=== PATIENT | male | born 1950 | race Caucasian/White ===

== ENCOUNTER 2017-03-17 04:51 | Inpatient (IN) | payer BC, OTHER ==
--- NOTE | 2017-02-20 10:34 | HISTORY & PHYSICAL EXAMINATION ---
DATE OF ADMISSION: 03/17/2017 CHIEF COMPLAINT: Left knee pain. HISTORY OF PRESENT ILLNESS: Mr. Ulloa is a 66-year-old male with a 3-year history of left knee pain. The patient rates his pain a 7/10. He has pain with his daily activities. He has limited standing and walking tolerance. Pain is worse with weightbearing. The patient has had injections, bracing and NSAIDs over the years. He has failed conservative treatment and is scheduled to proceed with elective left total knee arthroplasty. PAST MEDICAL HISTORY: Mitral valve prolapse. He denies heart disease, diabetes or DVT. PAST SURGICAL HISTORY: Negative. SOCIAL HISTORY: The patient drinks alcohol socially. He denies tobacco use. 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 FAMILY HISTORY: Negative for DVT. MEDICATIONS: None. ALLERGIES: None. REVIEW OF SYSTEMS: See HPI. Ten other systems reviewed, all negative. PHYSICAL EXAMINATION: VITAL SIGNS: Height 6 foot 2 inches, weight 240 pounds. GENERAL: This is a well-developed, well-nourished male who is alert and oriented x3. Mood and affect are appropriate. HEAD, EYES, EARS, NOSE, AND THROAT: Normocephalic, atraumatic. Mucous membranes are moist and intact. NECK: Supple without lymphadenopathy. HEART: Regular rate and rhythm without murmurs, rubs or gallops. LUNGS: Clear to auscultation without wheezes or rhonchi. ABDOMEN: Soft and nontender. Bowel sounds are equal and active. EXTREMITIES: No ecchymosis, redness or warmth. He has mild effusion. He has neutral alignment. Range of motion is from 5-115 degrees with +2 medial laxity. He is neurovascularly intact with +5/5 strength. X-RAY EXAMINATION: AP and lateral views show joint space narrowing and osteophyte formation. IMPRESSION: Degenerative joint disease, left knee. PLAN: The patient will be admitted for a left total knee arthroplasty. We will plan on aspirin for DVT prophylaxis. The patient's PCP is Dr. Coronado of [facility]. He will have [facility] for home physical therapy upon discharge.
[2017-02-21 08:58] VITALS: BMI 34.0
--- NOTE | 2017-02-21 09:26 | PAT Medication Instructions ---
Service Date Feb 21, 2017. Current Home Medication List Ibuprofen (Advil), 600 MG PO PRN Multivitamin (Multivitamin), 1 TAB PO QAM Ocuvite Preservision (Ocuvite Preservision), 1 TAB PO QAM [Vitamin B12], 1 TAB PO QAM [Vitamin C], 1 TAB PO QAM Medication Instructions For Your Scheduled Surgery - Check with surgeon for instructions: Ibuprofen (Advil), 600 MG PO PRN - Hold the following medications the morning of surgery: Multivitamin (Multivitamin), 1 TAB PO QAM Ocuvite Preservision (Ocuvite Preservision), 1 TAB PO QAM [Vitamin B12], 1 TAB PO QAM [Vitamin C], 1 TAB PO QAM If you have any questions please call us at [phone] or [phone] or [phone]
[2017-02-21 10:03] LABS: BASO % 0.7 %; BASO ABS # 0.04 K/uL (0-0.2); EOS % 2.3 %; EOS ABS # 0.13 K/uL (0-0.5); HEMOGLOBIN 15.8 g/dL (14.0-18.0); IG# 0.01 K/uL (0.00-0.02); LYMPH % 31.5 %; LYMPH ABS # 1.82 K/uL (1.2-3.4); MEAN CELL VOLUME 83.8 fL (80-100); MEAN CORPUSCULAR HEMOGLOBIN 29.4 pg (25-34); MEAN CORPUSCULAR HGB CONC 35.1 g/dl (32-36); MEAN PLATELET VOLUME 10.6 fL (7.4-10.4); MONO % 8.1 %; MONO ABS # 0.47 K/uL (0.11-0.59); NEUT % 57.2 %; PLATELET COUNT 168 K/uL (130-400); RED CELL DISTRIBUTION WIDTH CV 13.5 % (11.5-14.5); RED CELL DISTRIBUTION WIDTH SD 40.9 fL (36.4-46.3); WHITE BLOOD COUNT 5.77 K/uL (4.8-10.8)
[2017-02-21 10:10] LABS: PTT PATIENT 26.6 SECONDS (21.0-31.0)
[2017-02-21 10:12] LABS: ALBUMIN 4.1 gm/dl (3.4-5.0); CALCIUM 9.3 mg/dl (8.5-10.1); CREATININE 0.92 mg/dl (0.60-1.40); POTASSIUM 4.6 mmol/L (3.5-5.1)
[2017-02-21 10:27] LABS: HEMOGLOBIN A1C 5.1 % (4.5-5.6)
--- NOTE | 2017-02-21 10:29 | DIAGNOSTIC IMAGING REPORT ---
CHEST 2 VIEWS ROUTINE HISTORY: 66 years-old Male PAT preoperative exam. No acute chest complaints. COMPARISON: None available TECHNIQUE: PA and lateral views of the chest FINDINGS: Cardiac silhouette is moderately enlarged. No pneumothorax, pleural effusion, focal airspace consolidation or overt pulmonary edema. Bones of the chest appear grossly intact. IMPRESSION: Cardiomegaly without acute process. The above report was generated using voice recognition software. It may contain grammatical, syntax or spelling errors. Electronically signed by: Jose Alexandra M.D. 02/21/2017 10:28 AM Dictated Date/Time: 02/21/2017 10:27 AM
[2017-03-17] VITALS (10 sets, daily range): BP systolic 108–138; BP diastolic 68–85; PULSE 60–87; TEMP 36.2–36.7; O2SAT 91–96; Ht 188 cm; Wt 119.2 kg
[~2017-03-17] VITALS: Ht 188 cm; Wt 119.2 kg
[~2017-03-17 04:51] MED LIST: IBUP-1050 PO; MULT-190 PO; MULT-506 PO; VITAMIN B12 PO; VITAMIN C PO
[2017-03-17] MEDS ORDERED: LACTATED RINGER'S 1000ML 1,000 ML IV SCH (06:00)
[2017-03-17] MEDS ORDERED: CeleBREX 200 MG CAP PO SCH (06:00)
[2017-03-17] MEDS ORDERED: ROPIVACAINE 5MG/ML 30 ML 150 MG, BUPIVACAINE 0.5% MPF INJ 30 ML, EpINEphrine HCL INJ 0.... INFIL SCH ×8 (06:00)
[2017-03-17] MEDS ORDERED: CEFAZOLIN 2000MG IV PUSH 10 ML IV SCH (06:00)
[2017-03-17] MEDS ORDERED: METOCLOPRAMIDE HCL 10 MG TAB PO SCH (06:00)
[2017-03-17] MEDS ORDERED: LACTATED RINGER'S 1000ML IV SCH (06:00)
[2017-03-17] MEDS ORDERED: ACETAMINOPHEN 500 MG TAB PO SCH (06:00)
[2017-03-17] MEDS ORDERED: FAMOTIDINE 20 MG TAB PO SCH (06:00)
[2017-03-17] MEDS ORDERED: DEXAMETHASONE 4 MG TAB PO SCH (06:00)
[2017-03-17] MEDS ORDERED: LACTATED RINGER'S 1000ML 500 ML IV SCH (06:00)
[2017-03-17] MEDS ORDERED: GABAPENTIN 300 MG CAP PO SCH (06:00)
[2017-03-17] MEDS: TRANEXAMIC ACID INJ 1,000 MG in SYRINGE 0 ML IV SCH ×2 (06:30→06:39)
--- NOTE | 2017-03-17 06:42 | History & Physical Bridge Note ---
H&P Re-Evaluation Bridge Note: I have examined the patient, reviewed the History & Physical and in the interval since the performance of the History & Physical I have noted the following changes of clinical significance: No changes noted
[2017-03-17] MEDS ORDERED: FENTANYL CITRATE INJ 50 MCG/1 ML 2 ML VIAL ONE ×3 (06:45→06:47)
[2017-03-17] MEDS ORDERED: BUPIVACAINE 0.5 % 5 MG/1 ML PF 10ML VIAL ONE (06:45)
[2017-03-17] MEDS ORDERED: MIDAZOLAM HCL 1 MG/ML 2ML VIAL ONE ×4 (06:45→07:03)
[2017-03-17] MEDS ORDERED: ORTHO JOINT ANESTHETIC ONE (07:01)
[2017-03-17] MEDS ORDERED: POVIDONE-IODINE OP SOLN 30 ML BTL ONE (07:01)
[2017-03-17] MEDS ORDERED: BACITRACIN 50000 UNIT VIAL ONE (07:01)
[2017-03-17] MEDS ORDERED: FENTANYL CITRATE INJ 50 MCG/1 ML 2 ML VIAL IV PRN (07:15)
[2017-03-17] MEDS ORDERED: ONDANSETRON INJ 2 MG/ML 2 ML VIAL IV PRN ×2 (07:15→09:15)
[2017-03-17] MEDS ORDERED: EpHEDrine SULFATE INJ 50 MG/ML AMP IV PRN (07:15)
[2017-03-17] MEDS ORDERED: ATROPINE SULFATE 0.1 MG/ML 5ML SYR IV PRN (07:15)
[2017-03-17] MEDS ORDERED: PROPOFOL IV EMULSION 10 MG/ML 20 ML VIAL IV ONE (09:08)
--- NOTE | 2017-03-17 09:13 | [facility] Post Operative Brief Note ---
Immediate Operative Summary Operative Date Mar 17, 2017. Pre-Operative Diagnosis Left knee degenerative joint disease Post-Operative Diagnosis Left knee degenerative joint disease Procedure(s) Performed Left total knee arthroplasty Surgeon Dr. Santana Job Estimator Surgeon(s) Marisabel Andrew PA-C Estimated Blood Loss 25cc Findings see dictated op note Fluids (cc crystalloids) 1800 Specimens A. Left knee bone and tissue Drains none Anesthesia spinal Complication(s) None Disposition Recovery Room / PACU
[2017-03-17] MEDS ORDERED: OXYCODONE HCL IR 5 MG TAB (IMMEDIATE RELEASE) PO PRN (09:15)
[2017-03-17] MEDS ORDERED: MoRPHine SULFATE 4 MG/ML 1 ML CARP\\VIAL IV PRN (09:15)
--- NOTE | 2017-03-17 09:46 | DIAGNOSTIC IMAGING REPORT ---
L KNEE 1 OR 2 VIEWS ROUTINE CLINICAL HISTORY: AP/LATERAL IN PACU LEFT KNEE postoperative evaluation COMPARISON: None. DISCUSSION: Total left knee arthroplasty. Good contact between prosthetic and underlying bone. Surgical drains are in position. Expected soft tissue postoperative change. IMPRESSION: Anatomic alignment posttotal left knee arthroplasty. The above report was generated using voice recognition software. It may contain grammatical, syntax or spelling errors. Electronically signed by: Ethan Hernandez M.D. 03/17/2017 9:45 AM Dictated Date/Time: 03/17/2017 9:44 AM
--- NOTE | 2017-03-17 10:15 | Anesthesiology Progress Note ---
Anesthesia Post Op Note Date & Time Mar 17, 2017 at 10:15 Vital Signs Pain Intensity: 0.0 Vital Signs Past 12 Hours Date Time Temp Pulse Resp B/P (MAP) Pulse Ox O2 Delivery O2 Flow Rate FiO2 03/17/17 10:00 96 Room Air 03/17/17 10:00 36.3 64 16 110/71 (84) 96 Room Air 03/17/17 10:00 96 Room Air 03/17/17 09:50 65 14 117/77 96 Room Air 03/17/17 09:40 36.3 59 14 110/76 95 Room Air 03/17/17 09:30 65 14 112/78 97 Room Air 03/17/17 09:22 36.2 68 12 120/78 96 Room Air 03/17/17 05:34 36.7 70 20 126/85 92 Room Air Notes Mental Status: alert / awake / arousable, participated in evaluation Pt Amnestic to Procedure: Yes Nausea / Vomiting: adequately controlled Pain: adequately controlled Airway Patency, RR, SpO2: stable & adequate BP & HR: stable & adequate Hydration State: stable & adequate Neuraxial Anesthesia: was administered, sensory block is resolving Anesthetic Complications: no major complications apparent
[2017-03-17] MEDS: SODIUM CHLORIDE 0.9% 1000ML 1,000 ML IV SCH ×2 (12:19→20:03)
[2017-03-17] MEDS: ACETAMINOPHEN 500 MG TAB PO SCH ×2 (13:37→21:43)
--- NOTE | 2017-03-17 14:22 | [facility] Operative Report ---
Operative Report Operative Date Mar 17, 2017. Pre-Operative Diagnosis Left knee degenerative joint disease Post-Operative Diagnosis Left knee degenerative joint disease Procedure(s) Performed Left total knee arthroplasty Surgeon Dr. Santana Press Puller Surgeon(s) Marisabel Andrew PA-C Estimated Blood Loss 25cc Findings see dictated op note Fluids 1800 Specimens A. Left knee bone and tissue Drains none Anesthesia spinal Complication(s) none Disposition Recovery Room / PACU Indications A 68-year-old male presents with long history of right knee severe tricompartmental DJD which is failed outpatient conservative treatments including NSAIDs, bracing, cortisone injections home walking/exercise program. His symptoms have progressed to the point where it has been difficult for him to perform normal activities of daily living. I have indicated the patient for a left total knee arthroplasty, the risks and benefits and complications of the procedure include but are not limited to infection bleeding damage to bone nerves vessels surrounding soft tissue, blood clots loss of function leg length discrepancy dislocation failure of the components need for additional surgery and . The patient wished to proceed with surgery at this time and informed consent was obtained. Appropriate clearances were obtained. Description of Procedure The patient was taken to the operating room and appropriate anesthesia was administered. He was placed supine on the operating room table. A foot roll was placed so we could flex the knee during the procedure as needed. Pneumatic tourniquet was placed on the left upper thigh. Left lower extremity was prepped and draped in usual sterile fashion. Exam demonstrated that he had a varus knee fairly good range of motion with a 10 degree flexion contracture. After the leg was sterilely prepped and draped, it was elevated, exsanguinated with Esmarch bandage. Pneumatic tourniquet was raised to 300 mmHg. A midline incision was made anteriorly across the left knee. Skin was incised sharply and subcutaneous flaps were elevated. Incision was made through the medial retinaculum extended up in the mid third of the quadriceps tendon and extended down to the medial tibial tubercle. Intraarticular findings demonstrated that she had significant DJD medial compartment and PFJ [id number] with a varus knee. She did have some tricompartmental osteophytes. The [employer] Journey 2.0 total knee arthroplasty system was used using Scribble Presse MRI templating, femur sized for a 8, tibia for a 8 component. To expose the knee the infrapatellar fat pad was resected. The lateral synovial bands were released. The cruciate ligaments were resected. The meniscal remnants were resected. The fat pad over the anterior femur just above the articular surface for placement of the component in that area was resected. The knee was flexed and retractors were placed and the custom femoral cutting block was pinned in position and the distal femoral cut was made. Then the 5-in-1 cutting block was placed and the anterior, posterior and chamfer cuts were made for the 8 femur. Then attention was taken back to the tibia which was subluxed anteriorly and the custom tibial cutting block was pinned in position and the proximal tibial cut was made. Then we assessed ligamentous balance in extension and flexion utilizing the 11mm spacer block and drop donal and did some releases around the medial side to help with the balance. At this time, the tibia was then resubluxed and the 8 tibial trial was placed in position, externally rotated laterally with the tibial tubercle. The tibal drill and punch for the stem was used. Next the 8 femoral trial was inserted, centered and the notch cutting devices were used to finish prepping the femur. A trial 11mm tibial articulating surface was inserted assessed ligamentous balance again. The 11 trial insert gave balanced ligaments through full range of motion. At this time the knee was extended and a subperiosteal peel lateral release was performed around the patella. Patella width was measured and the patella was prepped utilizing the patella reamer and the 3 drill holes were made for the pegs. The excess lateral facet was beveled off to prevent any impingement. A 38mm patella button was placed and the patella tracked centrally. The trials were removed; the orthopedic anesthetic cocktail was injected per protocol. The knee was copiously irrigated with pulsatile lavage antibiotic solution with bacitracin. The final components were then cemented into place and trial tibial articulating surface inserted. Final components were the 8 Oxinium posterior stabilized [employer] Journey 2.0 left femoral component, size 8 primary tibial baseplate and 38mm patella. Once the cement cured, we trialed once more with the 11mm tibial articulating surface and found the knee to be stable throughout full ROM. The trial component was removed and the final 11mm tibial articular surface was inserted. We copiously irrigated out the knee with pulsatile lavage antibiotic solution and bacitracin. The quadriceps and medial retinaculum were closed with interrupted [id number] #1 Vicryl sutures. The knee was taken through full range of motion and repair was secure. Subcutaneous tissues were closed with interrupted 2-0 Vicryl sutures followed by 3-0 V lock and then the skin was closed with dermabond prineo skin closure system. The sterile dressings were applied and an Ozzie wrap from the foot to thigh. Tourniquet was let down and the patient had good capillary refill to the extremity. The patient tolerated the procedure well and was taken to the PACU in stable condition. Due to the complex nature of the procedure, the entire surgery was performed with the operational assistance of Mitzy Andrew PA-C. The historian research assistant, under direct supervision, was involved in the actual performance of all aspects of the surgical procedure including hemostasis, tissue retraction and incision, instrument management, patient positioning, and wound closure. I attest to the content of the Intraoperative Record and any orders documented therein. Any exceptions are noted below.
[2017-03-17] MEDS: CEFAZOLIN IV 2,000 MG in SYRINGE 0 ML IV SCH ×2 (15:37→23:44)
--- NOTE | 2017-03-17 16:25 | Orthopedic Progress Note ---
Orthopedic Progress Note Date of Service Mar 17, 2017. Subjective Additional Notes: Post-operative progress note Patient seen at bedside, comfortable, no acute issues, pain well controlled Objective LLE NVSI +EHL/FHL/TA/GS SILT grossly, CR< 2 seconds, compartments soft NT, dressing CDI, Date Time Temp Pulse Resp B/P (MAP) Pulse Ox O2 Delivery O2 Flow Rate FiO2 03/17/17 16:20 36.5 67 18 128/82 (97) 93 Room Air 03/17/17 12:58 36.2 71 16 108/68 (81) 94 Room Air 03/17/17 12:00 64 20 120/76 (91) 95 Room Air 03/17/17 11:02 67 19 138/75 (96) 91 Room Air 03/17/17 10:33 36.2 60 18 108/74 (85) 95 Room Air 03/17/17 10:00 96 Room Air 03/17/17 10:00 36.3 64 16 110/71 (84) 96 Room Air 03/17/17 10:00 96 Room Air 03/17/17 09:50 65 14 117/77 96 Room Air 03/17/17 09:40 36.3 59 14 110/76 95 Room Air 03/17/17 09:30 65 14 112/78 97 Room Air 03/17/17 09:22 36.2 68 12 120/78 96 Room Air 03/17/17 05:34 36.7 70 20 126/85 92 Room Air Assessment & Plan Assessment: s/p L TKA Plan: -Ancef x 24 -DVT PPX - ASA BID -WBAT LLE -PT/OT -Neuro checks -Pain controlled -am labs -PO XR - Well aligned, well fixed prothesis, no fracture/dislocation
[2017-03-17] MEDS: DOCUSATE SODIUM 100 MG CAP PO SCH (20:52)
[2017-03-17] MEDS: ASPIRIN 325 MG ECTAB PO SCH (20:52)
[2017-03-17] MEDS ORDERED: SENNA 8.6 MG TAB PO SCH (21:00)
[2017-03-18 02:40] VITALS: BP 119/71; PULSE 72; TEMP 36.6; O2SAT 92
[2017-03-18] MEDS: SODIUM CHLORIDE 0.9% 1000ML 1,000 ML IV SCH (05:46)
[2017-03-18] MEDS: ACETAMINOPHEN 500 MG TAB PO SCH (05:46)
[2017-03-18 07:02] LABS: HEMATOCRIT 36.7 % (42-52); HEMOGLOBIN 12.8 g/dL (14.0-18.0); MEAN CELL VOLUME 83.6 fL (80-100); MEAN CORPUSCULAR HEMOGLOBIN 29.2 pg (25-34); MEAN CORPUSCULAR HGB CONC 34.9 g/dl (32-36); MEAN PLATELET VOLUME 10.4 fL (7.4-10.4); PLATELET COUNT 161 K/uL (130-400); RED CELL DISTRIBUTION WIDTH CV 13.6 % (11.5-14.5); RED CELL DISTRIBUTION WIDTH SD 41.5 fL (36.4-46.3); WHITE BLOOD COUNT 12.87 K/uL (4.8-10.8)
[2017-03-18 07:24] LABS: CALCIUM 8.6 mg/dl (8.5-10.1); CREATININE 0.85 mg/dl (0.60-1.40); POTASSIUM 4.1 mmol/L (3.5-5.1)
[2017-03-18 07:39] VITALS: BP 126/76; PULSE 70; TEMP 36.3; O2SAT 91
[2017-03-18] MEDS ORDERED: ONDA8TAB6 PO (07:43)
[2017-03-18] MEDS ORDERED: ACET-24 PO (07:43)
[2017-03-18] MEDS ORDERED: ASPEC325 PO (07:43)
[2017-03-18] MEDS ORDERED: SENN-61 PO (07:43)
[2017-03-18] MEDS ORDERED: RXC5 PO (07:43)
--- NOTE | 2017-03-18 07:44 | Discharge Instructions ---
Discharge Instructions Date of Service Mar 18, 2017. Admission Reason for Admission: Left Knee Osteoarthritis Discharge Discharge Diagnosis / Problem: sp left TKA Discharge Goals Goal(s): Decrease discomfort, Improve function, Increase independence Activity Recommendations Activity Limitations: per Instructions/Follow-up section . Instructions / Follow-Up Instructions / Follow-Up ACTIVITY RECOMMENDATIONS: SELF CARE INSTRUCTIONS AFTER TOTAL KNEE REPLACEMENT A. You may need to continue a physical therapy program after discharge from the hospital. There are several options available to you. Your doctor will assist you in selecting the best one for you. 1. An out-patient facility 2 to 3 times a week for therapy or home therapy. 2. Continue working on all exercises taught to you in the hospital. Your goals should be to increase bending of your knee to 90 degrees and beyond and to fully straighten your knee. B. You may progress at your own pace from walking with a walker or crutches to a cane; then to no assistive devices. C. Make walking a part of your daily routine. Be up as much as comfortable with rest periods throughout the day. Rest with leg elevation is very important. Use the ice wrap frequently for the first 3-4 weeks. D. There are no restrictions on activities. You may ride in a car, shop, participate in scientific research manager and all social activities. E. Wear the long elastic stockings (JANE hose) 20 hours a day for 2 weeks after surgery. They can be removed several times a day for laundering and for a bath. F. You may shower, no tub baths until cleared by your doctor. SPECIAL CARE INSTRUCTIONS: VERY IMPORTANT TO READ AND REVIEW A. There are a few signs you need to watch for after you are home. Call [facility] [place] if you notice any of the followin. Increased severe knee pain. Some pain is expected especially when you exercise. 2. Increased swelling in your leg or knee; pain or swelling of the calf muscle in either lower leg. 3. Any fluid drainage from the incision. 4. Shortness of breath or chest pain. B. Please call [facility] [place] at if you have any concerns or questions about your operation or recovery. The doctor or his nurse will return your call promptly. C. You must take antibiotics before dental work, bladder, bowel or other surgery. Your doctor will provide you with a permanent care to carry describing this precaution. IMPORTANT: * REMEMBER TO TAKE ASPIRIN 325 MG, TWICE DAILY FOR 4 WEEKS UNLESS OTHERWISE DIRECTED. THIS IS YOUR BLOOD THINNER. * HIGH RISK PATIENTS MAY BE PRESCRIBED A STRONGER BLOOD THINNER. THIS WILL BE PROVIDED AT DISCHARGE. * CALL IF INCREASED PAIN, REDNESS, DRAINAGE OR FEVER GREATER THAT 101. * WEAR JANE HOSE 20 HOURS PER DAY FOR 2 WEEKS. DERMABOND Prineo- This is a mesh tape dressing that is covered with glue. It should remain in place until the incision is properly healed, usually 10-14 days. This dressing is designed to naturally slough off. You may trim the excess mesh tape as it peels off. Incision may be briefly wet in a shower. Dry immediately by blotting with a clean, dry towel. Do not bath or swim until instructed by your doctor. Do not scratch, rub, or pick at the dressing. Do not apply any topical ointments or lotions until dressing is completely removed and/or instructed by your doctor. There may be a small piece of suture material at one end of your incision. Do not pull or trim this. If it is bothersome or catching on clothing, you may cover it with a band-aid. FOLLOW UP VISIT: If appointment is not already scheduled: Please call [facility] [place] to make a follow-up appointment for 2 weeks after your surgery at . Current Hospital Diet Patient's current hospital diet: Regular Diet Discharge Diet Recommended Diet: Regular Diet Procedures Procedures Performed: Left total knee arthroplasty Pending Studies Studies pending at discharge: no Laboratory Results Hemoglobin A1c Test 02/21/17 09:35 Range/Units Estimated Average Glucose 100 mg/dl Hemoglobin A1c 5.1 4.5-5.6 % Medical Emergencies . Who to Call and When: Medical Emergencies: If at any time you feel your situation is an emergency, please call 911 immediately. . Non-Emergent Contact Non-Emergency issues call your: Surgeon . "Provider Documentation" section prepared by Marisabel Andrew. . VTE Core Measure Inpt VTE Proph given/why not?: Other Anticoagulation, T.E.D. Stockings, SCD's [place] Drug Monitoring Program Search Results: patient reviewed within database, no issues identified
--- NOTE | 2017-03-18 07:50 | Orthopedic Progress Note ---
Orthopedic Progress Note Date of Service Mar 18, 2017. Subjective Post OP Day: 1 Reports: feeling well, Denies: chest pain, SOB, nausea / vomiting, light headedness, calf pain Objective calves soft nontender, N/V intact, capillary refill less than 2 sec., dressing C /D/I, A&O x3, toes mobile Date Time Temp Pulse Resp B/P (MAP) Pulse Ox O2 Delivery O2 Flow Rate FiO2 03/18/17 07:39 36.3 70 16 126/76 (93) 91 Room Air 03/18/17 07:00 Room Air 03/18/17 02:40 36.6 72 18 119/71 (87) 92 Room Air 03/18/17 00:00 Room Air 03/17/17 22:49 36.5 72 18 113/69 (84) 92 Room Air 03/17/17 19:00 36.5 87 16 121/75 (90) 94 Room Air 03/17/17 16:20 36.5 67 18 128/82 (97) 93 Room Air 03/17/17 16:05 93 Room Air 03/17/17 12:58 36.2 71 16 108/68 (81) 94 Room Air 03/17/17 12:00 64 20 120/76 (91) 95 Room Air 03/17/17 11:02 67 19 138/75 (96) 91 Room Air 03/17/17 10:33 36.2 60 18 108/74 (85) 95 Room Air 03/17/17 10:00 96 Room Air 03/17/17 10:00 36.3 64 16 110/71 (84) 96 Room Air 03/17/17 10:00 96 Room Air 03/17/17 09:50 65 14 117/77 96 Room Air 03/17/17 09:40 36.3 59 14 110/76 95 Room Air 03/17/17 09:30 65 14 112/78 97 Room Air 03/17/17 09:22 36.2 68 12 120/78 96 Room Air Laboratory Results 24 Hours: Test 03/18/17 06:11 Hematocrit 36.7 % Hemoglobin 12.8 g/dL Prothromb Time International Ratio 1.0 Prothrombin Time 10.7 SECONDS Assessment & Plan Assessment: s/p L TKA POD#1 Plan: -Ancef x 24 -DVT PPX - ASA 325 BID -WBAT LLE -PT/OT -Neuro checks -Pain controlled -am labs -PO XR - Well aligned, well fixed prothesis, no fracture/dislocation PAIN MANAGEMENT- RACHEL, TYLENOL DC PLANNING- DC HOME TODAY WITH HOME PT, [facility].
[2017-03-18] MEDS: DOCUSATE SODIUM 100 MG CAP PO SCH (08:01)
[2017-03-18] MEDS: ASPIRIN 325 MG ECTAB PO SCH (08:02)
--- NOTE | 2017-03-18 08:13 | Anesthesiology Progress Note ---
Anesthesia Post Op Note Date & Time Mar 18, 2017 at 08:12 Vital Signs Pain Intensity: 0.0 Vital Signs Past 12 Hours Date Time Temp Pulse Resp B/P (MAP) Pulse Ox O2 Delivery O2 Flow Rate FiO2 03/18/17 07:39 36.3 70 16 126/76 (93) 91 Room Air 03/18/17 07:00 Room Air 03/18/17 02:40 36.6 72 18 119/71 (87) 92 Room Air 03/18/17 00:00 Room Air 03/17/17 22:49 36.5 72 18 113/69 (84) 92 Room Air Notes Mental Status: alert / awake / arousable, participated in evaluation Pt Amnestic to Procedure: Yes Nausea / Vomiting: adequately controlled Pain: adequately controlled Airway Patency, RR, SpO2: stable & adequate BP & HR: stable & adequate Hydration State: stable & adequate Neuraxial Anesthesia: was administered, sensory block resolved Anesthetic Complications: no major complications apparent
[2017-03-18] MEDS ORDERED: MULTIVITAMIN TAB PO SCH (09:00)
[2017-03-18] MEDS ORDERED: PANTOprazole SOD 40 MG TAB PO SCH (09:00)
[2017-03-18 11:06] VITALS: BP 132/85; PULSE 81; TEMP 36.3; O2SAT 95
== END 2017-03-18 14:43 | disposition home health service (06) | DRG 470 ==
LOC: C.ACU 04:51 → C.3E 09:12 → ENRESERV 09:37
PROVIDERS: ADMIT Orthopaedic Surgery; ATTEND Orthopaedic Surgery
PROC: 0SRD0J9 Replacement of Left Knee Joint with Synthetic Substitute, Cemented, Open Approach (ICD-10-PCS; principal; 2017-03-17 07:00)
DX: M17.12 Unilateral primary osteoarthritis, left knee (principal)

== ENCOUNTER → 2017-06-04 | Outpatient (CLI) | payer BC, OTHER ==
[~2017-06-04] MED LIST changes: +ACET-24 PO; +ASPEC325 PO; -IBUP-1050 PO; +ONDA-170 PO; +RXC5 PO; +SENN-61 PO
--- NOTE | 2017-06-04 10:59 | DIAGNOSTIC IMAGING REPORT ---
ULTRASOUND L VENOUS DOPP LOWER EXT UNILAT CLINICAL HISTORY: LEFT LOWER EXTREMITY PAIN/SWELLING COMPARISON STUDY: No previous studies for comparison. FINDINGS: Real-time and color flow Doppler imaging were performed. Flow was seen within the femoral, popliteal and calf veins with no intraluminal thrombus demonstrated. The saphenous vein is patent. Note is made of prominent left inguinal lymph nodes, the largest of which measures 58 x 23 x 15 mm. IMPRESSION: No evidence of left lower extremity DVT. Electronically signed by: Brody Segal M.D. 06/04/2017 10:58 AM Dictated Date/Time: 06/04/2017 10:57 AM
== END | disposition home or self-care (01) ==
LOC: C.ULTRBC 10:18
PROVIDERS: ATTEND Orthopaedic Surgery
DX: M79.605 Pain in left leg (principal)

== ENCOUNTER 2019-02-16 04:59 | Inpatient (IN) ==
--- NOTE | 2019-01-26 15:43 | PAT Medication Instructions ---
Medication Instructions Date of Service January 26, 2019 Home Medications acetaminophen [Acetaminophen Extra Strength] 1,000 mg PO UD PRN aspirin [Aspir-81] 81 mg PO DAILY atorvastatin 20 mg PO QAM cholecalciferol (vitamin D3) 1,000 unit PO DAILY furosemide 20 mg PO QAM meloxicam 20 mg PO DAILY zjoabzlt-hxt-xbtvw-vit K-lycop [One-A-Day Men's Multivitamin] 1 tab PO DAILY vit C-E-zinc qqp-rclvfg-gwvbvx [NsGene Eye Verafin] 1 tab PO DAILY vitamin B complex 1 cap PO DAILY STOP taking 2 weeks before surgery vit C-E-zinc xgm-lyxpga-jpfwii [NsGene Eye [facility]] 1 tab PO DAILY DO NOT take the morning of surgery cholecalciferol (vitamin D3) 1,000 unit PO DAILY furosemide 20 mg PO QAM jtatflrg-uqh-klbum-vit K-lycop [One-A-Day Men's Multivitamin] 1 tab PO DAILY vitamin B complex 1 cap PO DAILY Take morning of surgery With a small sip of water, OTHERWISE NOTHING TO EAT OR DRINK AFTER MIDNIGHT: acetaminophen [Acetaminophen Extra Strength] 1,000 mg PO UD PRN (if needed, may be taken up to four hours before surgery) aspirin [Aspir-81] 81 mg PO DAILY atorvastatin 20 mg PO QAM Other Notes If you have any questions please call us at [phone] or [phone] or [phone] or [phone]
--- NOTE | 2019-01-27 11:03 | Anesthesiology Consultation ---
Date of Service January 27, 2019 Assessment & Plan (1) Encounter for pre-operative examination: PCP Clearance 01/26/19 = "Pt is an acceptable surgical candidate." Chart Review Chart Review: Acceptable Risk for Surgery and Patient seen in Pre Admission Testing Teaching & Discussion Instructed NPO after midnight before surgery, except medications with 15 cc of water. Medication instructions provided according to the PAT guidelines. History Surgery Operation Date: 02/16/19 12:55 Proposed Procedures p Right Knee Total Knee Arthroplasty - Lalo Santana DO Height/Weight Height: 6 ft 2 in Weight: 121.1 kg Allergies Allergy/AdvReac Type Severity Reaction Status Date / Time No Known Drug Allergies Allergy Unknown NONE Verified 01/22/19 11:14 Medications Home Medications Medication Instructions Recorded Confirmed Last Taken acetaminophen [Acetaminophen Extra 1,000 mg PO UD PRN 01/22/19 01/22/19 Unknown Strength] aspirin [Aspir-81] 81 mg PO DAILY 01/22/19 01/22/19 Unknown atorvastatin 20 mg PO QAM 01/22/19 01/22/19 01/22/19 cholecalciferol (vitamin D3) 1,000 unit PO DAILY 01/22/19 01/22/19 Unknown [Vitamin D3] furosemide 20 mg PO QAM 01/22/19 01/22/19 Unknown meloxicam 20 mg PO DAILY 01/22/19 01/22/19 Unknown wbbymrrz-msc-bisqj-vit K-lycop 1 tab PO DAILY 01/22/19 01/22/19 Unknown [One-A-Day Men's Multivitamin] vit C-E-zinc goy-obrgqz-npeigd 1 tab PO DAILY 01/22/19 01/22/19 Unknown [facility] vitamin B complex 1 cap PO DAILY 01/22/19 01/22/19 Unknown Past Medical History Medical History Dental infection To have tooth removed and temporary removable implant placed on 02/09. Surgeon is aware and OK with proceeding. Patient aware false tooth must be removed prior to surgery. Osteoarthritis Exercise / Class Metabolic Activity II 4-5 Yardwork/Stairs/Walk up hill Past Surgical History Surgical History History of colonoscopy History of surgery AGE 21 - LEFT ORBITAL AREA History of total left knee replacement MAR 2017 [facility] Past Anesthesia History No Hx of Anesthesia Complications and No Family Hx of Anesthesia Complications History of PONV No Hx of PONV and Hx of Motion Sickness Social History Smoking Status: Former smoker Do You Dip or Chew Tobacco: No Smoking End Date: OVER 30 YRS AGO Hx Alcohol Use: Yes Alcohol type: beer and wine Alcohol Intake Frequency Comment: 1 A WEEK Hx Substance Use: No substance use type: does not use Review of Systems Pt denies any recent chest pain, shortness of breath, palpitations, cough, fever or URI. Physical Exam Vital Signs BP: 133/85 P: 67bpm SPO2: 95% RA T: 97.8 F R: 14 ENMT Mouth: + dental restorations (several crowns, one lower L implant) and + chipped teeth (broken/cracked upper L incisor, to be removed prior to surgery); no loose teeth Thyromental Distance: > or= 3.5 Finger Breadths (3.5) Mallampati Class: II Neck normal visual inspection; neck extension not limited Respiratory normal respiratory effort Auscultation: lungs clear to auscultation bilaterally Cardiovascular Rate/Rhythm: regular rate and regular rhythm Heart Sounds: no murmur Vessels: no carotid bruit Extremities: no edema Testing Laboratory Results 01/27/19 11:18 PT 10.6 Seconds (9.0-12.0) 01/27/19 11:18 INR 1.0 (0.9-1.1) 01/27/19 11:18 APTT 27.4 Seconds (21.0-31.0) 01/27/19 11:18 Hemoglobin A1c 5.2 % (4.5-5.6) 01/27/19 11:18 Urine Color Dark Yellow 01/27/19 Unknown Urine Appearance Clear (Clear) 01/27/19 Unknown Urine pH 5.0 (4.5-7.5) 01/27/19 Unknown Ur Specific [place] 1.016 (1.000-1.030) 01/27/19 Unknown Urine Protein Negative (Negative) 01/27/19 Unknown Urine Glucose (UA) Negative (Negative) 01/27/19 Unknown Urine Ketones Negative (Negative) 01/27/19 Unknown Urine Nitrite Negative (Negative) 01/27/19 Unknown Ur Leukocyte Esterase Negative (Negative) 01/27/19 Unknown Blood Type B Positive 01/27/19 11:18 Antibody Screen NEGATIVE 01/27/19 11:18 BMP 01/15/19 SODIUM: 141 POTASSIUM: 4.6 CHLORIDE: 105 CO2: 27 BUN: 22 CREATININE: 0.9 GLUCOSE: 108 Electrocardiogram Date: 01/27/19 Findings: + SB @ (57bpm) and + no change from (2017) *unconfirmed Chest X-Ray Date: 01/27/19 Findings: + NAD and + cardiomegaly Echocardiogram Date: 10/25/17 EF: 65% Left ventricular cavity size is normal. Left ventricular wall thickness is borderline increased. LV wall motion is normal. Right ventricular cavity size and systolic function are normal. No mitral valve prolapse present. Mild mitral regurgitation is present.
--- NOTE | 2019-01-27 11:58 | XRay Report ---
TWO VIEW CHEST CLINICAL HISTORY: Preoperative examination. FINDINGS: PA and lateral chest radiographs are compared to study dated 02/21/2017. The heart is enlar ged. The pulmonary vasculature is noncongested. The lungs and pleural spaces are clear. There is no pneumothorax. The skeletal structures are osteopenic. The bony thorax appears intact. IMPRESSION: Cardiomegaly with no active disease in the chest. Electronically signed by: Gavino Cuellar M.D. 01/27/2019 11:56 AM
[2019-01-27 12:34] LABS: Basophils # (auto) 0.03 K/uL (0-0.2); Basophils % (auto) 0.5 %; Eosinophils # (auto) 0.16 K/uL (0-0.5); Eosinophils % (auto) 2.6 %; Hematocrit (blood only) 43.4 % (42-52); Hemoglobin 15.2 g/dL (14.0-18.0); Immature Granulocytes # (auto) 0.01 K/uL (0.00-0.02); Immature Granulocytes % (auto) 0.2 %; Lymphocytes # (auto) 1.94 K/uL (1.2-3.4); Lymphocytes % (auto) 31.5 %; Mean Corpuscular Hemoglobin 29.7 pg (25-34); Mean Corpuscular Volume 84.8 fL (80-100); Mean Platelet Volume 10.7 fL (7.4-10.4); Monocytes # (auto) 0.36 K/uL (0.11-0.59); Monocytes % (auto) 5.9 %; Neutrophils # (auto) 3.65 K/uL (1.4-6.5); Neutrophils % (auto) 59.3 %; Platelet Count 167 K/uL (130-400); RDW Coefficient of Variation 13.8 % (11.5-14.5); RDW Standard Deviation 42.5 fL (36.4-46.3); Red Blood Count 5.12 M/uL (4.7-6.1); White Blood Count 6.15 K/uL (4.8-10.8)
[2019-01-27 12:46] LABS: Partial Thromboplastin Time 27.4 Seconds (21.0-31.0); Prothrombin Time 10.6 Seconds (9.0-12.0)
[2019-01-27 12:48] LABS: Appearance Urine Clear (Clear); Bilirubin Urine Negative (Negative); Blood Urine Negative (Negative); Color Urine Dark Yellow; Glucose Urine UA Negative (Negative); Ketones Urine Negative (Negative); Leukocyte Esterase Urine Negative (Negative); Nitrite Urine Negative (Negative); Protein Urine Negative (Negative); Specific Gravity Urine 1.016 (1.000-1.030); Urobilinogen Urine Negative (Negative)
[2019-01-27 12:56] LABS: Estimated Average Glucose 103 mg/dl; Hemoglobin A1C 5.2 % (4.5-5.6)
--- NOTE | 2019-02-15 20:31 | History & Physical Report ---
Date of Service February 15, 2019 Assessment & Plan (1) Degenerative joint disease of knee, right: I have indicated the patient for right total knee replacement. The risks, benefits and complications of surgery were explained to the patient which include but not limited to infection, acute blood loss, DVT/PE, injury to nerves, vessels, bone, soft tissue, arthrofibrosis, chronic pain, failure of the prosthesis, knee dislocation, leg length discrepancy, need for additional surgery, cardiac and pulmonary events and . The patient wished to proceed with surgery and informed consent was obtained at this time. We will plan for ASA BID post-operatively for DVT prophylaxis. Upon discharge the patient will be discharged home with home health services. Appropriate clearances by PCP were obtained. History of Present Illness Chief Complaint: Right knee pain/djd Primary Care Provider: Jama Coronado MD The patient is a 68 year old male who presents with complaints of severe right knee pain and DJD. The patient has failed outpatient conservative treatments to this point which included NSAIDs, IA corticosteroid injection, PT, home exercise/walking program, bracing. The patient's pain and limited function have progressed to the point where they severely hinder their activities of daily living and they no longer tolerate exercise programs. They are requesting to proceed with total knee replacement surgery. Allergies Allergy/AdvReac Type Severity Reaction Status Date / Time No Known Drug Allergies Allergy Unknown NONE Verified 02/16/19 05:51 Home Medications Home Medications Medication Instructions Recorded Confirmed Type acetaminophen [Acetaminophen Extra 1,000 mg PO UD PRN 01/22/19 02/16/19 History Strength] aspirin [Aspir-81] 81 mg PO DAILY 01/22/19 01/22/19 History atorvastatin 20 mg PO QAM 01/22/19 02/16/19 History cholecalciferol (vitamin D3) 1,000 unit PO DAILY 01/22/19 02/16/19 History [Vitamin D3] furosemide 20 mg PO QAM 01/22/19 02/16/19 History meloxicam 20 mg PO DAILY 01/22/19 02/16/19 History fdoyvpzs-jpc-gyejp-vit K-lycop 1 tab PO DAILY 01/22/19 02/16/19 History [One-A-Day Men's Multivitamin] vit C-E-zinc pmp-xaaztn-egwrkz 1 tab PO DAILY 01/22/19 02/16/19 History [facility] vitamin B complex 1 cap PO DAILY 01/22/19 02/16/19 History Past Med/Surg History Medical History Dental infection To have tooth removed and temporary removable implant placed on 02/09. Surgeon is aware and OK with proceeding. Patient aware false tooth must be removed prior to surgery. Osteoarthritis Surgical History History of colonoscopy History of surgery AGE 21 - LEFT ORBITAL AREA History of total left knee replacement MAR 2017 [facility] Social History Preferred Language: [place] Communication Ability: Effective Fishing Rod Trimmer Required: No Beliefs That Will Affect Care: None Current Living Situation: Spouse and Other Current Living Situation Comment: AND 'S MOTHER Other Information That Helps Us Care for You: No Feels Safe at Home: Yes Smoking Status: Former smoker Do You Dip or Chew Tobacco: No ; Smoking End Date: OVER 30 YRS AGO ; Hx Alcohol Use: Yes Alcohol type: beer and wine Hx Substance Use: No Review of Systems Review of Systems: All systems reviewed & are unremarkable except as noted in HPI & below Constitutional: as per Subjective / HPI Physical Exam Physical Exam: RLE NVSI +EHL/FHL/TA/GS SILT grossly, +2 DP pulse, compartments soft NT, limited painful ROM 3-120 degrees of flexion, +crepitus. Constitutional: WD/WN, vitals as above Eyes: PERRL, conjunctivae normal, anicteric sclerae ENMT: external ear and nose normal, oropharynx normal Neck: trachea midline, no thyromegaly Respiratory: normal respiratory effort, lungs clear to auscultation Cardiovascular: RRR, no murmur, no edema Gastrointestinal (Abdomen): normal bowel sounds, soft, nontender, no hepatosplenomegaly Musculoskeletal: no cyanosis or clubbing, extremities motor strength 5/5 Skin: no rashes, warm and dry Neurologic: patellar DTR's 2+ bilat, sensation intact Psychiatric: A+Ox3, euthymic affect Lymphatic: no cervical or axillary lymphadenopathy Results & Data Diagnostic Findings Multiple views of the knee demonstrates severe tricompartmental DJD with complete loss of the medial joint space. +osteophytes, +sclerosis.
[2019-02-16] MEDS ORDERED: ROPIVACAINE 0.5% HCL/PF 150 MG, BUPIVACAINE 0.5% MPF 30 ML, EPINEPHrine 30MG/30ML (OR U... INFIL SCH (06:00)
[2019-02-16] MEDS ORDERED: GABAPENTIN 300 MG CAP PO SCH (06:00)
[2019-02-16] MEDS ORDERED: ACETAMINOPHEN 500 MG TAB PO SCH (06:00)
[2019-02-16] MEDS ORDERED: TRANEXAMIC ACID 1,000 MG **IV Pre-op IV SCH (06:00)
[2019-02-16] MEDS ORDERED: LR 500ML BOLUS, THEN 15ML/HR IV SCH (06:00)
[2019-02-16] MEDS ORDERED: CeleBREX 200 MG CAP PO SCH (06:00)
[2019-02-16] MEDS ORDERED: CEFAZOLIN 3000MG 72.5 ML IV SCH (06:00)
[2019-02-16] MEDS ORDERED: dexAMETHasone 4 MG TAB PO SCH (06:00)
[2019-02-16] MEDS ORDERED: BUPIVACAINE 0.5 % 5 MG/1 ML PF 10ML VIAL ONE (06:19)
[2019-02-16] MEDS ORDERED: ROPIVACAINE 0.5% 5 MG/ML 30 ML VIAL ONE (06:19)
[2019-02-16] MEDS ORDERED: TRANEXAMIC ACID 1,000 MG **IV Intra-op IV SCH (06:30)
[2019-02-16] MEDS ORDERED: MIDAZOLAM HCL 1 MG/ML 2ML VIAL ONE (06:59)
[2019-02-16] MEDS ORDERED: fentaNYL citrate 100 MCG/2 ML VIAL ONE ×2 (06:59→07:51)
[2019-02-16] MEDS ORDERED: BACITRACIN INJ 50,000 UNIT VIAL ONE (07:01)
[2019-02-16] MEDS ORDERED: ORTHO JOINT ANESTHETIC ONE (07:01)
[2019-02-16] MEDS ORDERED: ePHEDrine sulfate 50 MG/ML AMP IV PRN (07:02)
[2019-02-16] MEDS ORDERED: ATROPINE SULFATE 0.1 MG/ML 10ML SYR IV PRN (07:02)
--- NOTE | 2019-02-16 07:13 | History & Physical Bridge Note ---
Date of Service February 16, 2019 History & Physical Bridge Note I have examined the patient, reviewed the History & Physical and in the interval since the performance of the History & Physical I have noted the following changes of clinical significance: no changes noted
[2019-02-16] MEDS ORDERED: PROPOFOL IV EMULSION 10 MG/ML 20 ML VIAL IV ONE (09:13)
[2019-02-16] MEDS ORDERED: LIDOCAINE HCL 2% 2 ML VIAL/AMP(20MG/ML) INFIL ONE (09:13)
--- NOTE | 2019-02-16 09:25 | Post Operative Brief Note ---
Immediate Post Op Note v1 Date of Surgery February 16, 2019 Pre & Post Diagnosis Operation Date: 02/16/19 07:30 Pre-Op Diagnosis: RIGHT KNEE OSTEOARTHRITIS Post-Op Diagnosis: RIGHT KNEE OSTEOARTHRITIS I identified the patient and participated in the time-out.: Yes Procedure Operation Date: 02/16/19 07:30 Actual Procedures p Right Knee Total Knee Arthroplasty(Right) - Lalo Santana DO Surgeon Lalo Santana DO Collar Feller Kiran Montague Estimated Blood Loss 50 Findings Consistent with Post-Op Diagnosis Fluids 1800 cc LR Specimens proximal tibia and distal femur bone fragments Anesthesia Type Spinal MAC Complications none Disposition Disposition: Recovery Room Overlapping Procedure I was present for: the critical portions of procedure. I was immediately available: during the entire case.
--- NOTE | 2019-02-16 09:50 | Operative Report ---
Post Operative Report Pre & Post Diagnosis Operation Date: 02/16/19 07:30 Pre-Op Diagnosis: RIGHT KNEE OSTEOARTHRITIS Post-Op Diagnosis: RIGHT KNEE OSTEOARTHRITIS I identified the patient and participated in the time-out.: Yes Procedure Operation Date: 02/16/19 07:30 Actual Procedures p Right Knee Total Knee Arthroplasty(Right) - Lalo Santana DO Surgeon Lalo Santana DO Bottle Inspector Kiran Montague Estimated Blood Loss 50 Findings Consistent with Post-Op Diagnosis Fluids 1800 cc LR Specimens Proximal tibia, distal femur bone fragments Anesthesia Type Spinal MAC Complications none Disposition Disposition: Recovery Room Indications The patient is a 68-year-old male presents with long history of severe right knee tricompartmental DJD and failed outpatient conservative treatments including NSAIDs, bracing, injections and physical therapy, home walking/exercise program. The patient's symptoms have progressed to the point where it has been difficult to perform normal activities of daily living. I have indicated the patient for a right total knee arthroplasty, the risks and benefits and complications of the procedure include but are not limited to infection bleeding damage to bone, nerves, vessels, surrounding soft tissue, blood clots, loss of function, leg length discrepancy, dislocation, failure of the components, need for additional surgery and . The patient wished to proceed with surgery at this time and informed consent was obtained. Appropriate clearances were obtained. Description of Procedure Components used: [employer] Nephew journey 2 - femur size 8, tibia size 8, poly-10 PS, patella 35 mm The patient was taken to the operating room and appropriate spinal anesthesia was administered. She was placed supine on the operating room table. A foot roll was placed so we could flex the knee during the procedure as needed. A pneumatic tourniquet was placed on the proximal aspect of the thigh. The right lower extremity was prepped and draped in usual sterile fashion. A timeout was performed, patient identified and site ulysses verified and IV antibiotics given. The leg was elevated, exsanguinated with Esmarch bandage. Pneumatic tourniquet was raised to 300 mmHg. A longitudinal midline incision was made over the anterior knee. Skin was incised sharply and subcutaneous flaps were elevated. Incision was made through the medial retinaculum extended up in the mid third of the quadriceps tendon and extended down to the medial tibial tubercle. The Spe[employer]hew Journey 2.0 total knee arthroplasty system was used using [facility] MRI templating and her femur sized for a 8, tibial sized for a 8. To expose the knee the infrapatellar fat pad was resected. The lateral synovial bands were released. The cruciate ligaments were resected. The meniscal remnants were resected. The fat pad over the anterior femur just above the articular surface for placement of the component in that area was resected. The knee was flexed and retractors were placed and the custom femoral cutting block was pinned in position and the distal femoral cut was made. Next, the size 8, 5-in-1 cutting block was pinned into place and the anterior, posterior and chamfer cuts were made. The 5-in-1 cutting block was removed. Next, attention was taken back to the tibia which was subluxed anteriorly and the custom tibial cutting block was pinned in position and the proximal tibial cut was made. The tibia guide was removed and proximal tibial bone fragment removed utilizing straight osteotome, electrocautery and juan. Laminar bonding agent was placed laterally and the ACL and PCL were removed followed by the medial meniscus and posterior medial osteophytes. Aquamantys was utilized for any posterior medial bleeders and Orthomix injected into the posterior medial capsule. A laminar bonding agent was then placed in the medial compartment and the lateral meniscus and posterior osteophytes were removed. Aquamantys was utilized for any posterior lateral bleeders and Orthomix injected into the posterior lateral capsule. Next, ligamentous balance was assessed in extension and flexion utilizing spacer block and drop donal. At this time, the tibia was then resubluxed and the 8 tibial trial was placed in position with appropriate external rotation in relationship to the tibial tubercle. The tibial drill and punch for the stem was used. Next the 8 femoral trial was inserted, centered and the notch cutting devices were used to finish prepping the femur. A trial 10 PS tibial articulat ing surface was inserted assessed ligamentous balance, the tibial size was increased sequentially testing for knee balance in full ROM, varus/valgus. The 10 PS trial insert gave balanced ligaments through full range of motion. At this time the knee was extended and a subperiosteal peel lateral release was performed around the patella. Patella width was measured and the patella was prepped utilizing free hand technique and the 3 drill holes were made for the pegs. The excess lateral facet was beveled off to prevent any impingement. A 35 mm oval patella button was placed and the patella tracked centrally. The trials were removed and the knee was copiously irrigated with pulsatile lavage antibiotic solution with bacitracin. The final components were then cemented into place and trial tibial articulating surface inserted. Once the cement cured, we trialed once more with the 10 PS tibial articulating surface and found the knee to be stable throughout full ROM. The trial component was removed and the final 10 PS tibial articular surface was inserted. Yvette-incisional soft tissue was injected utilizing [place] Orthomix which includes a combination of Ropivicaine 0.5% 150mg, Bupivicaine 0.5%/Epinephrine 1:200,000 30ml, Toradol 30mg, Dexamethasone 4mg, Ketamine 10mg, Clonidine 100mcg and NSS 30ml solution. A Betadine soak was performed. After 3 minutes, the knee was once more irrigated with copious sterile saline solution with bacitracin. The medial retinaculum was closed with interrupted [id number] #1 Vicryl sutures. The knee was taken through full range of motion and repair was secure. Subcutaneous tissues were closed with interrupted 2-0 Vicryl sutures followed by 3-0 V lock and then the skin was closed with Prineo Dermabond skin closure system. The sterile dressings were applied and an Ozzie wrap from the foot to thigh. Tourniquet was let down at 98 minutes and the patient had good capillary refill to the extremity. The patient tolerated the procedure well and was taken to the PACU in stable condition. Due to the complex nature of the procedure, the entire surgery was performed with the operational assistance of Kiran montague PA-C. The financial planning assistant, under direct supervision, was involved in the actual performance of all aspects of the surgical procedure including patient positioning, hemostasis, tissue retraction, instrument management and wound closure. . I attest to the content of the Intraoperative Record and any orders documented therein. Any exceptions are noted below.
--- NOTE | 2019-02-16 10:16 | XRay Report ---
RIGHT KNEE 2 VIEWS History: Right total knee arthroplasty. Degenerative arthritis. Postop. FINDINGS: The patient is status post a right total knee arthroplasty. The hardware is intact. No frac ture or dislocation. IMPRESSION: Right total knee arthroplasty. No evidence for hardware complication. Electronically signed by: Jacob Harris M.D. 02/16/2019 10:13 AM
--- NOTE | 2019-02-16 10:30 | Anesthesiology Progress Note ---
Date of Service February 16, 2019 Anesthesia Post Procedure Vital Signs Vital Signs: Temp Pulse Pulse Resp BP Pulse Ox 02/16/19 09:55 60 14 116/72 100 02/16/19 09:48 36.0 C L 63 16 109/65 100 02/16/19 06:01 36.6 C 68 18 124/77 94 Transfer of Care Handoff Completed per policy Notes Mental Status: alert / awake / arousable and participated in evaluation Patient Amnestic to Procedure: Yes Nausea / Vomiting: adequately controlled Pain: adequately controlled Airway Patency, RR, SpO2: stable & adequate BP & HR: stable & adequate Hydration State: stable & adequate Neuraxial Anesthesia: was administered and sensory block is resolving Anesthetic Complications: no major complications apparent
[2019-02-16] MEDS ORDERED: ONDANSETRON INJ 2 MG/ML 2 ML VIAL IV PRN (11:10)
[2019-02-16] MEDS ORDERED: MAGNESIUM HYDROXIDE SUSP 30 ML UDC PO PRN (11:10)
[2019-02-16] MEDS ORDERED: CEFAZOLIN 3000MG/72.5 ML BAG IV SCH (11:10)
[2019-02-16] MEDS ORDERED: OXYCODONE HCL IR 5 MG TAB (IMMEDIATE RELEASE) PO PRN (11:10)
[2019-02-16] MEDS ORDERED: bisacodyL 10 MG SUPP PR PRN (11:10)
[2019-02-16] MEDS ORDERED: NALOXONE HCL 0.4 MG/1 ML VIAL/CARP IV PRN (11:10)
[2019-02-16] MEDS ORDERED: METOCLOPRAMIDE HCL INJ 5 MG/ML 2 ML VIAL IV PRN (11:10)
[2019-02-16] MEDS ORDERED: HYDROmorphone INJ 0.5 MG/0.5 ML SYR IV PRN (11:10)
[2019-02-16] MEDS: KETOROLAC TROMETHAMINE 15 MG/ML VIAL IV SCH ×2 (12:59→17:21)
[2019-02-16] MEDS: SODIUM CHLORIDE 0.9% 1000ML 1,000 ML IV SCH ×2 (13:00→23:18)
[2019-02-16] MEDS: ACETAMINOPHEN 500 MG TAB PO SCH ×2 (13:29→21:16)
[2019-02-16] MEDS: CEFAZOLIN 3,000 MG in DEXTROSE 5% 50 ML IV SCH ×2 (14:27→22:22)
--- NOTE | 2019-02-16 16:10 | Orthopedic Progress Note ---
Date of Service February 16, 2019 Assessment & Plan (1) Degenerative joint disease of knee, right: Status post right TKA -Ancef x24 -DVT prophylaxis: SCDs, teds, ASA twice daily -Weight-bear as tolerated right lower extremity -PT/OT -Postoperative x-ray demonstrates a well aligned well fixed orthopedic prosthesis without evidence of fracture dislocation -A.m. labs -DC planning Subjective Post Operative Progress Note Patient seen sitting up in bed, comfortable, denies complaints, pain well controlled, no acute issues. Review of Systems Review of Systems: All systems reviewed & are unremarkable except as noted in HPI & below Constitutional: as per Subjective / HPI Physical Exam Physical Exam: RLE NVSI +EHL/FHL/TA/GS SILT grossly, +2 DP pulse, compartments soft NT, dressing cdi. Constitutional: WD/WN, vitals as above Results & Data Vital Signs (Past 12 Hours) Vital Signs Temp Pulse Pulse Resp BP Pulse Ox 02/16/19 15:15 36.3 C L 66 16 113/73 92 02/16/19 14:00 55 L 16 106/67 94 02/16/19 12:57 73 18 121/78 95 02/16/19 12:10 41 L 14 109/68 92 02/16/19 11:30 50 L 110/71 92 02/16/19 10:50 48 L 16 104/68 96 02/16/19 10:35 36.4 C L 58 L 12 108/69 95 02/16/19 10:25 55 L 13 123/77 95 02/16/19 10:15 51 L 14 103/72 94 02/16/19 10:05 51 L 13 117/74 100 02/16/19 09:55 60 14 116/72 100 02/16/19 09:48 36.0 C L 63 16 109/65 100 02/16/19 06:01 36.6 C 68 18 124/77 94
[2019-02-16] MEDS ORDERED: SENNA 8.6 MG TAB PO SCH (21:00)
[2019-02-16] MEDS: DOCUSATE SODIUM 100 MG CAP PO SCH (21:16)
[2019-02-16] MEDS: ASPIRIN 325 MG ECTAB PO SCH (21:16)
[2019-02-17] MEDS: KETOROLAC TROMETHAMINE 15 MG/ML VIAL IV SCH ×2 (00:08→05:24)
[2019-02-17] MEDS: ACETAMINOPHEN 500 MG TAB PO SCH ×2 (05:25→13:05)
[2019-02-17 05:55] LABS: Hemoglobin 12.6 g/dL (14.0-18.0); Mean Corpuscular Hemoglobin 29.7 pg (25-34); Mean Corpuscular Volume 84.9 fL (80-100); Mean Platelet Volume 10.5 fL (7.4-10.4); Platelet Count 155 K/uL (130-400); RDW Coefficient of Variation 13.7 % (11.5-14.5); RDW Standard Deviation 42.3 fL (36.4-46.3); Red Blood Count 4.24 M/uL (4.7-6.1); White Blood Count 14.46 K/uL (4.8-10.8)
[2019-02-17 06:19] LABS: BUN Creatinine Ratio 31.7 (10-20); Calcium 8.2 mg/dl (8.5-10.1); Creatinine Clr Calc Pharmacy 131.7 ml/min; Est GFR (African American) 110.2; Est GFR (Non-African American) 95.1; Potassium 4.4 mmol/L (3.5-5.1)
[2019-02-17] MEDS: DOCUSATE SODIUM 100 MG CAP PO SCH (08:33)
[2019-02-17] MEDS: ASPIRIN 325 MG ECTAB PO SCH (08:34)
--- NOTE | 2019-02-17 08:38 | Orthopedic Progress Note ---
Date of Service February 17, 2019 Assessment & Plan (1) Degenerative joint disease of knee, right: Status post right TKA -Ancef x24 -DVT prophylaxis: SCDs, teds, ASA twice daily -Weight-bear as tolerated right lower extremity -PT/OT -Postoperative x-ray demonstrates a well aligned well fixed orthopedic prosthesis without evidence of fracture dislocation -A.m. labs: hgb 12.6 -DC planning - home with HH Subjective Post Operative Progress Note Patient seen sitting up in bed, comfortable, denies complaints, pain well controlled, no acute issues. Denies F/C/N/V/SOP/CP. Review of Systems Review of Systems: All systems reviewed & are unremarkable except as noted in HPI & below Constitutional: as per Subjective / HPI Physical Exam Physical Exam: RLE NVSI +EHL/FHL/TA/GS SILT grossly, +2 DP pulse, compartments soft NT, dressing cdi. Constitutional: WD/WN, vitals as above Results & Data Vital Signs (Past 12 Hours) Vital Signs Temp Pulse Pulse Resp BP Pulse Ox 02/17/19 07:58 36.6 C 96 H 14 114/76 93 02/17/19 03:24 36.9 C 58 L 16 118/70 96 02/16/19 23:16 36.5 C 63 16 93/58 L 92 Laboratory Results 02/17/19 02/17/19 Range/Units 05:38 05:38 WBC 14.46 H (4.8-10.8) K/uL RBC 4.24 L (4.7-6.1) M/uL Hgb 12.6 L (14.0-18.0) g/dL Hct 36.0 L (42-52) % MCV 84.9 (80-100) fL MCH 29.7 (25-34) pg MCHC 35.0 (32-36) g/dL RDW Std Deviation 42.3 (36.4-46.3) fL RDW Coeff of Syed 13.7 (11.5-14.5) % Plt Count 155 (130-400) K/uL MPV 10.5 H (7.4-10.4) fL Sodium 139 (136-145) mmol/L Potassium 4.4 (3.5-5.1) mmol/L Chloride 111 H (98-107) mmol/L Carbon Dioxide 25 (21-32) mmol/L Anion Gap 3.0 (3-11) BUN 24 H (7-18) mg/dl Creatinine 0.76 (0.6-1.4) mg/dl Est Cr Clr Drug Dosing 131.7 ml/min Est GFR ( Amer) 110.2 Est GFR (Non-Af Amer) 95.1 BUN/Creatinine Ratio 31.7 H (10-20) Glucose 122 H (70-99) mg/dl Calcium 8.2 L (8.5-10.1) mg/dl
[2019-02-17] MEDS ORDERED: FUROSEMIDE 20 MG TAB PO SCH (09:00)
[2019-02-17] MEDS ORDERED: ATORVASTATIN 20 MG TAB PO SCH (09:00)
[2019-02-17] MEDS ORDERED: MULTIVITAMIN TAB PO SCH (09:00)
[2019-02-17] MEDS ORDERED: CeleBREX 200 MG CAP PO SCH (21:00)
--- NOTE | 2019-02-17 21:34 | Discharge Summary ---
Date of Service February 17, 2019 Admission HPI Per Admitting Provider The patient is a 68 year old male who presents with complaints of severe right knee pain and DJD. The patient has failed outpatient conservative treatments to this point which included NSAIDs, IA corticosteroid injection, PT, home exercise/walking program, bracing. The patient's pain and limited function have progressed to the point where they severely hinder their activities of daily living and they no longer tolerate exercise programs. They are requesting to proceed with total knee replacement surgery. Principal Diagnosis Right total knee replacement Discharge Exam RLE NVSI +EHL/FHL/TA/GS SILT grossly, +2 DP pulse, compartments soft NT, dressing cdi. Constitutional WD/WN, vitals as above Discharge Data Allergies Allergy/AdvReac Type Severity Reaction Status Date / Time No Known Drug Allergies Allergy Unknown NONE Verified 02/16/19 05:51 Consultations 02/16/19 11:10 Consult Case Management - Discharge Planning Routine Procedures Performed Operation Date: 02/16/19 07:30 Actual Procedures p Right Knee Total Knee Arthroplasty(Right) - Lalo Santana DO Ordered Studies 02/16/19 05:00 US - OR guided needle placemen Routine Hospital Course (1) Degenerative joint disease of knee, right: The patient is a 68 -year-old male who presents with long standing history of severe right knee DJD and failed outpatient conservative treatments. The patient's symptoms have progressed to the point where it has been difficult to perform even normal activities of daily living. I indicated the patient for a right total knee arthroplasty, the risks, benefits and complications of the procedure include but not limited to infection, bleeding, damage to bone, nerves, vessels, surrounding soft tissue, may develop blood clots, loss of function, leg length discrepancy, dislocation, failure of the components, loosening of the components, the need for additional surgery and . The patient wished to proceed with surgery at this time and informed consent was obtained. Hospital Course: On 02/16/19 the patient was taken to the operating room, adequate anesthesia administered and underwent a right total knee arthroplasty. The patient tolerated the procedure well and was taken to the PACU in stable condition. Post-operatively the patient was started on a DVT ppx medication and given appropriate IV antibiotics. Consults were placed to physical therapy, occupational therapy and case management. On POD#1, the patient did well overnight and their pain was well controlled. Labs were drawn and the Hgb was 12.6. The patient progressed well with PT. Dressings were changed at this time and the incision was clean, dry and intact. The patients hospital stay was relatively uneventful and they were deemed stable by the orthopedic team and consultants to be discharged home with HH on 02/17/19. Discharge Instructions: Upon discharge the patient may weight bear as tolerates through their operative extremity. They were instructed to keep the incision clean and dry at all times. The patient may shower but should not submerge the incision, avoid bathing, pools and hot tubes. The patient was given a script for pain medication and should take as instructed. The patient was given a script for DVT ppx 325mg ASA BID and should take as directed. The patient was instructed to not drive or travel for long distances until cleared to do so. If the patient develops any symptoms of fevers, chills, nausea, vomiting, increased redness, swelling, pain or drainage from the surgical site, they should notify the office and/or proceed to the nearest emergency room. The patient should follow up in 10-14 days after surgery for their routine post-operative follow-up appointment and should call the office to confirm the date and time. Status post right TKA -Ancef x24 -DVT prophylaxis: SCDs, teds, ASA twice daily -Weight-bear as tolerated right lower extremity -PT/OT -Postoperative x-ray demonstrates a well aligned well fixed orthopedic prosthesis without evidence of fracture dislocation -A.m. labs: hgb 12.6 -DC planning - home with Total Time Total Time Spent Total Time Spent (In Minutes): 30 minutes Discharge Plan Discharge Items Patient Disposition: Home - Home Health Services Reason For Visit: RIGHT KNEE OSTEOARTHRITIS Discharge Diagnosis: Right total knee replacement Condition on Discharge: Good Activity: Per Instructions section Lifting: Wait until after follow-up appointment Bathing: Keep incision dry Bathing Comment: No bathing, pools or hot tubs. Sexual Activity: Wait until after follow-up appointment Exercise/Sports: Wait until after follow-up appointment Driving/Machine Use: No driving. Weightbearing: Full weightbearing Non-emergency contact: Primary Care Provider and Surgeon Call non-emergency contact if: you have any medication questions, your symptoms worsen, your pain is not controlled, your pain is worsening, your pain is unusual for you, your pain is concerning for you, you have a fever, your temperature is above 101, your wound has increased redness, your wound has increased drainage and your wound pain has increased Follow-up/Referrals: Jama Coronado MD [Primary Care Provider] - Diet: Regular Addtl Attending Provider Instructions: ACTIVITY RECOMMENDATIONS: SELF CARE INSTRUCTIONS AFTER TOTAL KNEE REPLACEMENT A. You may need to continue a physical therapy program after discharge from the hospital. There are several options available to you. Your doctor will assist you in selecting the best one for you. 1. An out-patient facility 2 to 3 times a week for therapy or home therapy. 2. Continue working on all exercises taught to you in the hospital. Your goals should be to increase bending of your knee to 90 degrees and beyond and to fully straighten your knee. B. You may progress at your own pace from walking with a walker or crutches to a cane; then to no assistive devices. C. Make walking a part of your daily routine. Be up as much as comfortable with rest periods throughout the day. Rest with leg elevation is very important. Use the ice wrap frequently for the first 3-4 weeks. D. There are no restrictions on activities. You may ride in a car, shop, participate in hard rock miner and all social activities. E. Wear the long elastic stockings (JANE hose) 20 hours a day for 2 weeks after surgery. They can be removed several times a day for laundering and for a bath. F. You may shower, no tub baths until cleared by your doctor. SPECIAL CARE INSTRUCTIONS: VERY IMPORTANT TO READ AND REVIEW A. There are a few signs you need to watch for after you are home. Call [facility] if you notice any of the followin. Increased severe knee pain. Some pain is expected especially when you exercise. 2. Increased swelling in your leg or knee; pain or swelling of the calf muscle in either lower leg. 3. Any fluid drainage from the incision. 4. Shortness of breath or chest pain. B. Please call [facility] at if you have any concerns or questions about your operation or recovery. The doctor or his nurse will return your call promptly. C. You must take antibiotics before dental work, bladder, bowel or other surgery. Your doctor will provide you with a permanent care to carry describing this precaution. IMPORTANT: * REMEMBER TO TAKE ASPIRIN, 325 MG, TWICE DAILY FOR 4 WEEKS UNLESS OTHERWISE DIRECTED. THIS IS YOUR BLOOD THINNER. * HIGH RISK PATIENTS MAY BE PRESCRIBED A STRONGER BLOOD THINNER. THIS WILL BE PROVIDED AT DISCHARGE. * CALL IF INCREASED PAIN, REDNESS, DRAINAGE OR FEVER GREATER THAT 101. * WEAR JANE HOSE 20 HOURS PER DAY FOR 2 WEEKS. * YOU MAY HAVE A LARGE BAND-AID LIKE DRESSING (SILVERON). THIS WILL REMAIN ON YOUR INCISION FOR 7 DAYS, THEN CAN BE REMOVED. IF INCISION IS LEAKING THROUGH DRESSING, CALL THE OFFICE . FOLLOW UP VISIT: If appointment is not already scheduled: Please call [facility] to make a follow-up appointment for 2 weeks after your surgery at . Pending Studies at Discharge: No Stand-Alone Forms: [facility], Opioid Pain Management, Smoking Cessation Medications and DC Order Prescriptions: New celecoxib [Celebrex] 200 mg Capsule 200 mg PO BID PRN (Reason: pain/inflammation) Qty: 28 RF: 0 acetaminophen 500 mg Tablet 1,000 mg PO Q8 PRN (Reason: pain) Qty: 90 RF: 0 aspirin 325 mg Tablet,Delayed Release (Dr/Ec) 325 mg PO BID Qty: 56 RF: 0 oxycodone 5 mg Tablet 5 mg PO Q6H MDD 6 tabs PRN (Reason: pain) Qty: 30 RF: 0 docusate sodium 100 mg Capsule 100 mg PO BID PRN (Reason: constipation) Qty: 28 RF: 0 Continued atorvastatin 20 mg Tablet 20 mg PO QAM RF: 0 furosemide 20 mg Tablet 20 mg PO QAM RF: 0 vitamin B complex Capsule 1 cap PO DAILY RF: 0 cholecalciferol (vitamin D3) [Vitamin D3] 1,000 unit Capsule 1,000 unit PO DAILY RF: 0 One-A-Day Men's Multivitamin 400-20-300 mcg Tablet 1 tab PO DAILY RF: 0 Ocuvite Eye Health 50 mg-15 unit- 4.5 mg-2.5 mg Tablet,Chewable 1 tab PO DAILY RF: 0 Discontinued meloxicam 15 mg Tablet 20 mg PO DAILY RF: 0 aspirin [Aspir-81] 81 mg Tablet,Delayed Release (Dr/Ec) 81 mg PO DAILY RF: 0 acetaminophen [Acetaminophen Extra Strength] 500 mg Tablet 1,000 mg PO UD PRN (Reason: Pain) RF: 0 Discharge Orders: Discharge Order (Routine); Ordered 02/17/19 Ordered By: Lalo Cormier/Other Patient Handouts: Surgery Prevent DVT After Admission Data Admit Date/Time: 02/16/19 09:58 Attending Provider: Lalo Santana Admit Provider: Lalo Santana Primary Care Provider: Jama Coronado Other Interventions: Discharge Summary Assessment (RN) Last Done: 02/17/19 10:21 DC Date/Time DO NOT enter until pt leaves facility: 02/17/19 13:46
== END 2019-02-17 13:46 | disposition home health service (06) | DRG 470 ==
LOC: ASU 04:59 → 3E 09:58